=== PATIENT | female | born 1970 | race Two or more races ===

== ENCOUNTER 2018-11-05 01:58 | Emergency (ER) | payer OTHER ==
[~2018-11-05] VITALS: Ht 157.5 cm; Wt 89.8 kg
[2018-11-05] MEDS ORDERED: PERCOCET 5-3251 EACH PO (07:56)
[2018-11-05] MEDS ORDERED: IBUPROFEN800 MG PO (07:56)
== END 2018-11-05 08:25 | disposition home or self-care (01) ==
LOC: ER 01:58
DX: D48.1 Neoplasm of uncertain behavior of connective and other soft tissue (principal); R10.31 Right lower quadrant pain